=== PATIENT | male | born 1965 | race Caucasian/White ===

== ENCOUNTER → 2016-10-13 | Outpatient (CLI) | payer MEDICAID ==
[~2016-10-13] MED LIST: AMITIZA24 MCG ORAL; CEPHALEXIN500 MG ORAL; DIVALPROEX SOD500 MG PO; DOCUSATE SODIU250 MG ORAL; FISH OIL300 M1 PO; FOLIC ACID0.4 MG ORAL; HM DOUBLE ANT28.4 G1 TP; LACTULOSE20 GM/301 ORAL; LEVETIRACETAM1000 MG ORAL; LISINOPRIL20 MG ORAL; MILK OF MA400 MG/51 ORAL; OYSCO-500500 M1 PO; PRIMIDONE250 MG ORAL; TAMSULOSIN HCL0.4 MG ORAL; TOVIAZ8 MG PO; VITAMIN D400 INTLU ORAL
--- NOTE | 2016-10-13 15:46 | GI Initial Consult Note ---
Hirsch,Yaneth Josep N.PHimanshu 10/13/16 1546: History of Present Illness General Date patient seen: Oct 13, 2016 Time patient seen: 15:38 Referring physician: DARRYN Reason for Consultation: COLONOSCOPY SCREENING Present Illness HPI 50 year old male patient accompanied by caregivers with history of mental retardation referred to [facility] by Dr. Dean for routine colonoscopy screening. The patient presents with c/o of constipation in which he was taking Amitiza in the past, but had stop because of insurance reasons. Pt has no history of any endoscopic procedures. Home Meds Active Scripts Bacitracin Zinc/Polymyx B Sulf (HM DOUBLE ANTIBIOTIC OINTMENT) 28.4 Gm Oint...g. , 1 APPLIC TP BID, #28.4 GM Prov:Stacy Parikh.Malachi 08/22/16 Cephalexin* (KEFLEX*) 500 Mg Capsule, 500 MG ORAL EVERY 12 HOURS, #14 CAP 0 Refills Prov:Stacy Parikh 08/22/16 Reported Medications Lubiprostone (AMITIZA*) 24 Mcg Capsule, 24 MCG ORAL EVERY 12 HOURS, CAP 08/22/16 Vitamin D (Vitamin D3) 400 Unit Tablet, 2000 UNITS ORAL DAILY, TAB 08/22/16 Fesoterodine Fumarate (TOVIAZ) 8 Mg Tab.er.24h, 8 MG PO, TAB 08/22/16 Tamsulosin Hcl (TAMSULOSIN HCL*) 0.4 Mg Cap.er.24h, 0.4 MG ORAL BEDTIME, CAP 08/22/16 Magnesium Hydroxide* (MILK OF MAGNESIA*) 400 Mg/5 Ml Oral.susp, 30 ML ORAL DAILY , ML 08/22/16 Lisinopril (LISINOPRIL*) 20 Mg Tablet, 20 MG ORAL DAILY, TAB 08/22/16 Folic Acid (FOLIC ACID) 0.4 Mg Tablet, 0.4 MG ORAL DAILY, TAB 08/22/16 Conway-3 Fatty Acids (FISH OIL) 300 Mg Capsule, 300 MG PO, CAP 08/22/16 Med list reviewed/reconciled: Yes Allergies: Coded Allergies: No Known Allergies (Unverified , 08/22/16) Patient History Limited by: medical condition History Provided By: Medical Record, Caregiver PMH Narrative mental retardation hep B liver abscess Seizures Social History: Denies: alcohol use, drug use, other, smoking Review of Systems All Other Systems: negative except mentioned in HPI Physical Exam T 96.2 BP 125/80 P 100 HT 5'6 WT 172 Sp02 EP Interpretation: reviewed General Appearance: no apparent distress EENT: PERRL/EOMI Neck: normal inspection, supple Respiratory: no respiratory distress Cardiovascular: normal rate Gastrointestinal: non tender, soft Rectal: deferred Neurologic: alert Psychiatric: other - mental retardation Skin: normal color, no rash Lymphatic: normal inspection, no adenopathy GI: Plan Problems: (1) Hepatitis B (2) Liver abscess (3) Seizure Plan colonoscopy scheduled 11/02/16. - CLD & Miralax/mag citrate prep given and acknowledged by caregiver. rx miralax qhs rx Amitiza Seen with Dr. Rueda. Thank you for referring this patient. ALEXIS RUEDA 10/14/16 0848: History of Present Illness Present Illness Home Meds Active Scripts Bacitracin Zinc/Polymyx B Sulf (HM DOUBLE ANTIBIOTIC OINTMENT) 28.4 Gm Oint...g. , 1 APPLIC TP BID, #28.4 GM Prov:Stacy Parikh 08/22/16 Cephalexin* (KEFLEX*) 500 Mg Capsule, 500 MG ORAL EVERY 12 HOURS, #14 CAP 0 Refills Prov:Stacy Parikh 08/22/16 Reported Medications Lubiprostone (AMITIZA*) 24 Mcg Capsule, 24 MCG ORAL EVERY 12 HOURS, CAP 08/22/16 Vitamin D (Vitamin D3) 400 Unit Tablet, 2000 UNITS ORAL DAILY, TAB 08/22/16 Fesoterodine Fumarate (TOVIAZ) 8 Mg Tab.er.24h, 8 MG PO, TAB 08/22/16 Tamsulosin Hcl (TAMSULOSIN HCL*) 0.4 Mg Cap.er.24h, 0.4 MG ORAL BEDTIME, CAP 08/22/16 Magnesium Hydroxide* (MILK OF MAGNESIA*) 400 Mg/5 Ml Oral.susp, 30 ML ORAL DAILY , ML 08/22/16 Lisinopril (LISINOPRIL*) 20 Mg Tablet, 20 MG ORAL DAILY, TAB 08/22/16 Folic Acid (FOLIC ACID) 0.4 Mg Tablet, 0.4 MG ORAL DAILY, TAB 08/22/16 Conway-3 Fatty Acids (FISH OIL) 300 Mg Capsule, 300 MG PO, CAP 08/22/16 Allergies: Coded Allergies: No Known Allergies (Unverified , 08/22/16) GI: Plan Plan The patient was seen and examined at bedside and all new and available data was reviewed in the patients chart. I agree with the above findings, impression and plan. (Patient seen earlier today. Signature stamp does not reflect patient encounter time.). -Alexis HirschSout[facility] Josep N.P. Oct 13, 2016 15:46 ALEXIS RUEDA Oct 14, 2016 08:48
[2016-10-13 16:54] VITALS: BP 125/88
== END | disposition home or self-care (01) ==
LOC: PAN 14:44
DX: B19.10 Unspecified viral hepatitis B without hepatic coma (principal); K75.0 Abscess of liver; K59.00 Constipation, unspecified; R56.9 Unspecified convulsions
CPT/HCPCS: 99201

== ENCOUNTER 2018-12-06 09:16 | Day surgery (SDC) | payer MEDICAID ==
[~2018-12-06] VITALS: Ht 30.5 cm; Wt 0.5 kg
[2018-12-06] MEDS ORDERED: LORazepam 1mg tab ORAL SCH (09:47)
[2018-12-06] MEDS ORDERED: LORazepam Inj 2mg/ml 1ml ONE (09:51)
[2018-12-06] MEDS ORDERED: LORazepam Inj 2mg/ml 1ml IM PRN (10:30)
[2018-12-06] MEDS ORDERED: Midazolam 2mg/2ml Inj ONE (10:36)
[2018-12-06] MEDS ORDERED: fentaNYL 100 mcg/2 mL IV ONE (10:36)
== END 2018-12-06 11:16 | disposition home or self-care (01) ==
LOC: GAS 09:16
DX: Z53.9 Procedure and treatment not carried out, unspecified reason (principal)
CPT/HCPCS: J2250; J3010

== ENCOUNTER 2018-12-12 17:40 | Emergency (ER) | payer MEDICAID ==
[~2018-12-12] VITALS: Ht 177.8 cm; Wt 70.8 kg
[2018-12-12] MEDS ORDERED: LORazepam Inj 2mg/ml 1ml IM ONE (17:45)
[2018-12-12] MEDS ORDERED: Lidocaine 1% 10mg/ml/Epi 0.005mg/ml 30ml vial INJ ONE (17:45)
--- NOTE | 2018-12-12 17:52 | NUR ---
ED Nurse Note: patient came into ER from [facility], clinical trials systems administrator a bedside. patient has laceration on his right head according to clinical trials systems administrator, he hit his head on chair 30 minutes prior to coming to ER.
--- NOTE | 2018-12-12 19:02 | NUR ---
ED Nurse Note: patient went down for CT
--- NOTE | 2018-12-12 19:08 | NUR ---
HAND-OFF: Report given to Rebecca JOSEPH. Patient is in CT head
--- NOTE | 2018-12-12 19:15 | NUR ---
ED Nurse Note: casper romero, solid waste landfill technician - unable to compelete Head CT due to pt continously moving. ermd is notified and aware.
[2018-12-12] MEDS ORDERED: Haloperidol 5mg/ml Inj IM ONE (19:30)
[2018-12-12 20:30] VITALS: BP 109/73
[2018-12-12] MEDS ORDERED: fentaNYL 100 mcg/2 mL IV ONE (21:00)
--- NOTE | 2018-12-12 21:20 | NUR ---
ED Nurse Note: PT WENT TO CT
--- NOTE | 2018-12-12 21:30 | NUR ---
ED Nurse Note: PT RETURNED FROM CT - INCOMPLETE DUE TO CONTINOUS MOVEMENT
[2018-12-12 22:10] VITALS: BP 110/69
[2018-12-12] MEDS ORDERED: PAIN RELIEF650 MG PO (22:40)
--- NOTE | 2018-12-12 22:40 | NUR ---
ED Nurse Note: home living customer service administrator Ladonna - [phone]
[2018-12-12] MEDS ORDERED: Bacitracin Oint UD TOPIC ONE ×2 (23:00→23:01)
--- NOTE | 2018-12-12 23:10 | NUR ---
ED Nurse Note: sarah were dresssed per ermd request to prevent pt from touching sarah.
--- NOTE | 2018-12-12 23:12 | NUR ---
ED Nurse Note: verbal report given to Ladonna, Supply Service Worker of [facility]
[2018-12-12 23:13] VITALS: BP 110/69
--- NOTE | 2018-12-12 23:14 | NUR ---
ER DISCHARGE NOTE: Patient is cleared to be discharged per ERMD, pt is aox0, on room air, with stable vital signs. pt content administrator from [facility] at bedside. pt content administrator was given dc and prescription instructions, pt adminsitrator was able to verbalize understanding, pt id band removed. pt assisted by caregiver to ambulate. pt took all belongings. adminstrator took pt back to support services
--- NOTE | 2018-12-13 09:20 | Diagnostic Imaging Report ---
Indications: Altered mental status, injury, head laceration Technique: Spiral acquisitions obtained through the brain. Angled axial and coronal 5 x 5 mm slices were reconstructed. Total dose length product 4493 mGycm. CTDI vol(s) 70 x 3 mGy. Dose reduction achieved using automated exposure control Comparison: None. Findings: Surgical sarah are seen repairing right frontal scalp laceration; there is evidence of underlying contusion. The calvarium is intact. There is mild prominence of the ventricles and extra-axial CSF spaces. No acute intracranial hemorrhage nor edema, mass effect, nor midline shift. Rarely differentiation is normal. There is bilateral maxillary and ethmoid sinus disease incidentally noted. Prominent auricular calcifications are incidentally noted. Impression: Evidence of right scalp laceration Negative for acute intracranial bleed or mass effect Mild age-related volume loss This agrees with the preliminary interpretation provided overnight by [facility] teleradiology service. The CT scanner at [facility] is accredited by the [employer] and the scans are performed using protocols designed to limit radiation exposure to as low as reasonably achievable to attain images of sufficient resolution adequate for diagnostic evaluation.
--- NOTE | 2018-12-13 14:39 | Emergency Room Report ---
History of Present Illness General Chief Complaint: Laceration Source: Patient, Caregiver Present Illness HPI Patient 52-year-old male brought in by caregiver for scalp laceration. Patient had injury approximately just prior to arrival. Patient reportedly had ran into a wooden chair. He had no loss of consciousness. Patient had prior history of developmental delay. Patient is nonverbal at baseline but does sign. Patient not been vomiting since injury. He had been ambulatory. Patient stays in a residential care facility. Allergies: Coded Allergies: No Known Allergies (Unverified , 08/22/16) Patient History Past Medical History: see triage record Reviewed Nursing Documentation: PMH: Agreed; PSxH: Agreed Nursing Documentation-PMH Past Medical History: No History, Except For Hx Cardiac Problems: No Hx Cancer: No Hx Gastrointestinal Problems: Yes - liver abscess Hx Neurological Problems: Yes - MENTAL RETARDATION Hx Seizures: Yes Review of Systems All Other Systems: limited - by mental status Physical Exam Vital Signs Date Time Temp Pulse Resp B/P (MAP) Pulse Ox O2 Delivery O2 Flow Rate FiO2 12/12/18 20:30 98.1 87 15 109/73 94 Room Air General Appearance: well appearing, no apparent distress, alert Head: other - large right side scalp laceration Eyes: bilateral eye PERRL ENT: moist mucus membranes Neck: full range of motion Respiratory: lungs clear, no respiratory distress, speaking full sentences Cardiovascular #1: normal inspection Gastrointestinal: normal inspection Musculoskeletal: normal inspection, normal range of motion Neurologic: alert, responsive, normal gait, other - signs stating hungry Psychiatric: mood/affect normal Skin: no rash, laceration - 10 cm stellate Procedures Laceration/Wound Repair Laceration/Wound Repair : Consent: Emergent Wound Location: head Wound's Depth, Shape: into muscle, irregular Wound Length (cm): 10 Wound Explored: clean Irrigated w/ Saline (ccs): 60 Betadine Prep?: Yes Anesthesia: Lidocaine w/ Epi Volume Anesthetic (ccs): 8 Wound Debrided: minimal Wound Repaired With: sarah Number of Sutures: 12 Patient Tolerated: Well Complications: None Medical Decision Making Diagnostic Impression: Primary Impression: Laceration ER Course Patient presented for scalp laceration. Differential diagnosis include was not limited to foreign body, fracture, intracranial hemorrhage among others. CT imaging was ordered due to patient's injury and large laceration. Patient was given Haldol and Benadryl due to agitation. Patient was given medications for pain. CT the head read by radiology showed no evidence of intracranial hemorrhage or acute fracture. Patient's caregiver was advised to have the patient's wound rechecked in 3 days. She was advised to have sarah removed in 2 weeks. Patient was to return for persistent vomiting alteration in mental status or other concerns. Last Vital Signs Date Time Temp Pulse Resp B/P (MAP) Pulse Ox O2 Delivery O2 Flow Rate FiO2 12/12/18 23:13 98.2 92 16 110/69 98 Room Air Status: improved Disposition: HOME, SELF-CARE Condition: Stable Scripts Acetaminophen (PAIN RELIEF) 650 Mg Tablet.er 650 MG PO EVERY 4 HOURS, #30 TAB Prov: Joel Curry MD 12/12/18 Referrals: Mayra Dean MD (PCP) Patient Instructions: Head Injury, Adult, Laceration Care, Adult Additional Instructions: Staple removal in 10 days Joel Curry MD Dec 13, 2018 14:39
== END 2018-12-12 23:13 | disposition home or self-care (01) ==
LOC: EMR 18:13
DX: S01.01XA Laceration without foreign body of scalp, initial encounter (principal); W22.03XA Walked into furniture, initial encounter; Y92.199 Unspecified place in other specified residential institution as the place of occurrence of the external cause
CPT/HCPCS: 12004; 70450; 96372; 96374; 99284; J1630; J3010; Z7502

== ENCOUNTER 2018-12-18 15:52 | Emergency (ER) | payer MEDICAID ==
[~2018-12-18] VITALS: Ht 172.7 cm; Wt 81.6 kg
[~2018-12-18 15:52] MED LIST changes: +PAIN RELIEF650 MG PO
--- NOTE | 2018-12-18 16:13 | NUR ---
ED Nurse Note: Pt DARYA from [facility] due to pt pulling out his sarah on the head. Pt is severly autistic. Pt was here on 12/12/18 due to fall and he got sarah. Denies pain.
[2018-12-18 16:15] VITALS: BP 125/78
--- NOTE | 2018-12-18 16:29 | Emergency Room Report ---
History of Present Illness General Chief Complaint: Laceration Source: Caregiver Present Illness HPI 52-year-old male patient presents the ER brought in by caretakers requesting wound check of laceration on scalp. Reports was previously seen here 9 days ago for similar symptoms, states had sarah placed at that time. Informed by caretakers that patient has been " ripping out" sarah. States saw primary care doctor yesterday and was given oral antibiotics which the patient began taking today. Denies active bleeding.. Reports open laceration on scalp currently. Denies other aggravating or relieving factors. Allergies: Coded Allergies: No Known Allergies (Unverified , 08/22/16) Patient History Past Medical History: see triage record Reviewed Nursing Documentation: PMH: Agreed; PSxH: Agreed Nursing Documentation-PMH Past Medical History: No History, Except For Hx Cardiac Problems: No Hx Cancer: No Hx Gastrointestinal Problems: Yes - liver abscess Hx Neurological Problems: Yes - MENTAL RETARDATION autism Hx Seizures: Yes Review of Systems All Other Systems: negative except mentioned in HPI Physical Exam Vital Signs Date Time Temp Pulse Resp B/P (MAP) Pulse Ox O2 Delivery O2 Flow Rate FiO2 12/18/18 16:02 98.1 19 130/71 97 Room Air 12/18/18 16:15 88 Sp02 EP Interpretation: reviewed, normal General Appearance: well appearing, no apparent distress, alert, GCS 15, non- toxic Head: normocephalic, atraumatic Eyes: bilateral eye normal inspection, bilateral eye PERRL ENT: hearing grossly normal, normal pharynx, no angioedema, normal voice, uvula midline, moist mucus membranes Neck: full range of motion Respiratory: lungs clear, normal breath sounds, no rhonchi, no respiratory distress, no accessory muscle use, no wheezing, speaking full sentences Musculoskeletal: back normal, digits/nails normal, gait/station normal, normal range of motion, non-tender Psychiatric: mood/affect normal Skin: laceration - Right frontal scalp laceration, linear and open, dried blood noted, no active bleeding, no surrounding erythema or edema Medical Decision Making PA Attestation Dr. Alvarez is my supervising Physician whom patient management has been discussed with. Diagnostic Impression: Primary Impression: Encounter for wound re-check ER Course Pt. presents to the ED requesting wound check of scalp. Ddx considered but are not limited to cellulitis, abscess, wound check, folliculitis. Vital signs: are WNL, pt. is afebrile ER COURSE: Patient would not let my staff or myself evaluate the laceration, provide 1 mg of Ativan to help relax patient and better assess the wound. Wound cleaned and bacitracin placed. Patient would not allow wound dressing placed, nursing staff reports that patient would likely remove wound dressing. Reviewed previous chart. Due to the fact that the wound is several days out from having initially injury and repair, will not place new sutures or sarah in, will allow to heal by secondary intention. Advised patients caretakers to continue taking antibiotics and follow with primary care provider for further evaluation and treatment. Follow-up with plastic specialist to discuss further treatment. ER precautions given. Discussed patient care with supervising physician Dr. Alvarez, agrees with assessment treatment plan. Patient discharged to caretakers. DISCHARGE: Rx provided for Bacitracn Patient instructed to continue with medications per initial ER provider instructions. At this time pt. is stable for d/c to home. Patient resting comfortably, in no acute distress, nontoxic appearing. Will provide printed patient care instructions and any necessary prescriptions. Care plan and follow up instructions have been discussed with the patient prior to discharge. Patient instructed to follow-up with primary care provider for further treatment and referral. Patient questions asked and answered. ER precautions given. Patient instructed to return to ER immediately for any new or worsening of symptoms including but not limited to fever, worsening of pain symptoms. - Please note that this Emergency Department Report was dictated using [employer] representative technology software, occasionally this can lead to erroneous entry secondary to interpretation by the dictation equipment. Last Vital Signs Date Time Temp Pulse Resp B/P (MAP) Pulse Ox O2 Delivery O2 Flow Rate FiO2 12/18/18 16:15 98.1 88 20 125/78 98 Room Air Status: improved Disposition: HOME, SELF-CARE Condition: Stable Scripts Bacitracin/Polymyxin B Sulfate (BACITRACIN-POLYMYXIN OINTMENT) 28.35 Gm Oint...g. 1 APPLIC TP BID, #28 GM Prov: Charlie Foy 12/18/18 Patient Instructions: Nonsutured Laceration Care Additional Instructions: Patient instructed to follow-up with primary care provider in 2-3 days for wound check . Will allow to heal by secondary intention. Initial injury was several days ago. Follow-up with primary care provider and discuss referral to plastic specialist. Keep clean and dry. Take medications as directed. Keep wound clean and dry. Patient questions asked and answered. ER precautions given, patient instructed to return to ER immediately for any new or worsening of symptoms. Charlie Foy Dec 18, 2018 16:29
[2018-12-18] MEDS ORDERED: LORazepam 1mg tab ORAL ONE (16:30)
[2018-12-18] MEDS ORDERED: Bacitracin Oint UD TOPIC ONE (16:30)
[2018-12-18] MEDS ORDERED: BACITRACIN-P28.35 GM TP (16:48)
[2018-12-18 17:04] VITALS: BP 122/65
--- NOTE | 2018-12-18 17:06 | NUR ---
ER DISCHARGE NOTE: Patient is cleared to be discharged per ERMD, on room air, with stable vital signs. pt's caregiver was given dc and prescription instructions, pt's caregiver was able to verbalize understanding, pt id band removed without complications. pt is able to ambulate with steady gait. pt took all belongings.
== END 2018-12-18 17:50 | disposition home or self-care (01) ==
LOC: EMR 16:16
DX: S01.01XD Laceration without foreign body of scalp, subsequent encounter (principal); X58.XXXD Exposure to other specified factors, subsequent encounter
CPT/HCPCS: 99281